=== PATIENT | male | born 1990 | race African-American/Black ===

== ENCOUNTER 2016-08-20 01:33 | Emergency (ER) | payer OTHER ==
[2016-08-20] MEDS ORDERED: METHOCARBAMOL 500 MG TABLET PO ONE (02:27)
[2016-08-20] MEDS ORDERED: IBUPROFEN 800 MG TABLET PO ONE (02:27)
--- NOTE | 2016-08-20 02:37 | ER Document Report ---
ED Neck/Back Problem - General Chief Complaint: Neck Pain < 24hrs old Stated Complaint: NECK PAIN Mode of Arrival: Ambulatory Information source: Patient Notes: Patient is a 25-year-old -[place] male who presents to the ER today for neck pain after he was doing martial arts this morning and fell on his upper back. Patient states that he did not immediately have any neck pain, did not hit his head or lose consciousness, is not having any back pain at all but the neck pain began a few hours afterwards. He states that it has worsened throughout the day, causing a soreness that it does not allow him to turn his neck very far from side to side or look up and down very far. He has been applying ice all day. TRAVEL OUTSIDE OF THE [place] IN LAST 30 DAYS: No - Related Data Allergies/Adverse Reactions: No Known Allergies Allergy (Verified 08/20/16 01:45) Past Medical History - General Information source: Patient - Social History Smoking Status: Never Smoker Chew tobacco use (# tins/day): No Frequency of alcohol use: Social Drug Abuse: None Family History: Reviewed & Not Pertinent Patient has suicidal ideation: No Patient has homicidal ideation: No Renal/ Medical History: Denies: Hx Peritoneal Dialysis Review of Systems - Review of Systems Constitutional: No symptoms reported EENT: No symptoms reported Cardiovascular: No symptoms reported Respiratory: No symptoms reported Gastrointestinal: No symptoms reported Genitourinary: No symptoms reported Male Genitourinary: No symptoms reported Musculoskeletal: See HPI Skin: No symptoms reported Hematologic/Lymphatic: No symptoms reported Neurological/Psychological: No symptoms reported Physical Exam - Vital signs Vitals: Temp Pulse Resp BP Pulse Ox 98.2 F 53 L 17 130/71 H 99 08/20/16 01:47 08/20/16 01:47 08/20/16 01:47 08/20/16 01:47 08/20/16 01:47 - Notes Notes: PHYSICAL EXAMINATION: GENERAL: Well-appearing and in no acute distress. HEAD: Atraumatic, normocephalic. EYES: Pupils equal round and reactive to light, extraocular movements intact, sclera anicteric, conjunctiva are normal. NECK: No tenderness over the cervical spine, Limited of motion with rotation to the right and left and looking up and down secondary to pain, without lymphadenopathy LUNGS: CTAB and equal. No wheezes rales or rhonchi. HEART: Regular rate and rhythm without murmurs EXTREMITIES: Normal range of motion, no pitting edema. No cyanosis. NEUROLOGICAL: Cranial nerves grossly intact. Normal sensory/motor exams. PSYCH: Normal mood, normal affect. SKIN: Warm, Dry, normal turgor, no rashes or lesions noted Course - Re-evaluation Re-evalutation: 08/20/16 02:30 Patient has absolutely no tenderness over the cervical spine or spine otherwise. Patient appears well, clinically this appears to be very muscular. I do not see reason for x-rays today as he has no spinal/bony tenderness, or tenderness at all upon palpation. He was given a muscle relaxer and anti- inflammatory pain medication here. - Vital Signs Vital signs: Temp Pulse Resp BP Pulse Ox 98.4 F 60 18 133/68 H 99 08/20/16 03:23 08/20/16 03:23 08/20/16 03:23 08/20/16 03:23 08/20/16 03:23 Discharge - Discharge Clinical Impression: Sore neck Condition: Stable Disposition: HOME, SELF-CARE Additional Instructions: Return immediately for any new or worsening symptoms. Follow up with primary care provider, call tomorrow to make followup appointment. Prescriptions: Ibuprofen [Motrin 800 mg Tablet] 800 mg PO Q8H PRN #30 tab PRN Reason: Methocarbamol [Robaxin 500 mg Tablet] 1,000 mg PO BID PRN #40 tablet PRN Reason: Forms: Return to Work
[2016-08-20 03:24] VITALS: BP 133/68
== END 2016-08-20 02:50 | disposition home or self-care (01) ==
LOC: ER 01:33
DX: M54.2 Cervicalgia (principal); L98.9 Disorder of the skin and subcutaneous tissue, unspecified
CPT/HCPCS: 99283